=== PATIENT | female | born 1975 | race Caucasian/White ===

== ENCOUNTER → 2017-07-29 13:37 | Outpatient (REF) | payer BC, SELFPAY ==
[2017-07-29 18:56] LABS: Basophils % 0.6 % (0.1-2.0); Eosinophils # 0.2 K/mm3 (0.0-0.4); Eosinophils % 2.1 % (0.1-12.0); Hematocrit 39.2 % (37.0-47.0); Hemoglobin 12.5 g/dL (12.2-16.2); Lymphocytes # 1.9 K/mm3 (0.7-4.5); Lymphocytes % 28.1 K/mm3 (10-50); Mean Corpuscular HGB Conc 31.8 g/dL (31.8-35.4); Mean Corpuscular Hemoglobin 27.9 pg (27.0-31.2); Mean Corpuscular Volume 87.6 fl (81-99); Mean Platelet Volume 8.7 fl (7.4-10.4); Monocytes # 0.5 K/mm3 (0.1-1.0); Monocytes % 6.8 % (1.7-9.3); Neutrophils # 4.3 K/mm3 (1.8-7.8); Neutrophils % 62.4 % (37.0-80.0); Platelet Count 264 K/mm3 (142-424); Red Blood Count 4.47 M/mm3 (4.20-5.40); Red Cell Distribution Width 12.7 % (11.5-17.5); White Blood Count 6.9 K/mm3 (4.8-10.8)
[2017-07-29 19:06] LABS: Alanine Aminotransferase 14 U/L (12-78); Albumin Level 3.5 gm/dL (3.4-5.0); Alkaline Phosphatase 58 U/L (46-116); Anion Gap 13.3 mEq/L (5-15); Aspartate Amino Transferase 13 U/L (15-37); Bilirubin,Total 0.6 mg/dL (0.2-1.0); Blood Urea Nitrogen 20 mg/dL (7-18); Calcium 8.8 mg/dL (8.5-10.1); Carbon Dioxide 27 mmol/L (21.0-32.0); Chloride 106 mmol/L (98-107); Chol/HDL Ratio 5.4 (1-3.5); Cholesterol 226 mg/dL (140-200); Creatinine,Serum 0.71 mg/dL (0.55-1.02); Estimated Glomerular Filt Rate 90 ml/min (>60); Free T4 (Free Thyroxine) 0.96 ng/dl (0.76-1.46); GFR (African American) 109 ML/MIN (>60); Globulin 3.5 gm/dl (1.3-3.2); Glucose 84 mg/dL (74-106); HDL Cholesterol 42 mg/dL (29-89); LDL Cholesterol 149 mg/dL (0-130); Potassium 4.3 mmoL/L (3.5-5.1); Sodium 142 mmol/L (136-145); Thyroid Stimulating Hormone 1.77 uIU/ml (0.358-3.740); Triglycerides 176 mg/dL (30-200); VLDL Cholesterol 35 mg/dL (0-40)
[2017-07-29 19:12] LABS: Hemoglobin A1C 5.3 % (0.0-7.0)
[2017-07-31 16:59] LABS: LH 6.2 mIU/mL (.); Progesterone <0.1 ng/mL (.); Vitamin D 25 Hydroxy 25.1 ng/mL (30.0-100.0)
[2017-08-03 12:49] LABS: Estrogen 111 pg/mL (.)
== END ==
LOC: LAB 13:37
PROVIDERS: Visit Provider Nurse Practitioner Family
DX: R53.83 Other fatigue (principal); E11.9 Type 2 diabetes mellitus without complications
CPT/HCPCS: 80053; 80061; 82652; 82672; 83001; 83002; 83036; 84144; 84439; 84443; 85025

== ENCOUNTER → 2017-11-25 10:37 | Outpatient (CLI) | payer BC, SELFPAY ==
--- NOTE | 2017-11-25 10:41 | MM_ITS ---
MM Dig screening mamm BI w/CAD ORDERING PHYSICIAN : Jonathan Jane MD PATIENT AGE: 41 years GENDER: Female COMPARISON: February 2014 mammogram. Only INDICATION: ITS.REASON: Routine Mammogram Screening No hormones. No new complaints. Family history. paternal grandmother with breast cancer TECHNIQUE: Standard CC and MLO images were obtained. R2 CAD reviewed. FINDINGS: Minimal/Mild to moderate residual fibroglandular elements in both breast most evident towards central breast and upper outer quadrant. . When technique is considered I see no significant new findings. No dominant or suspicious mass. No suspicious calcifications. .. A stable tiny benign-appearing area of nodularity the deep lateral left breast again be followed.. I would recommend & encourage follow-up bilateral mammogram in one year. For ongoing evaluation -------IMPRESSION: ---- ... No significant new areas of concern. No suspicious findings. Bilateral follow-up in one year recommended and should be encouraged. BI-RADS Category: 2 Benign Finding(s) RECOMMENDED FOLLOW-UP: 1YR 1 YEAR FOLLOW-UP (A letter has been sent to the patient regarding results of the study.)
== END ==
PROVIDERS: Family Provider Family Medicine; PCP Nurse Practitioner Family; Visit Provider Nurse Practitioner Obstetrics & Gynecology
DX: Z12.31 Encounter for screening mammogram for malignant neoplasm of breast (principal)
CPT/HCPCS: 77067

== ENCOUNTER → 2019-04-11 16:04 | Outpatient (CLI) | payer BC, SELFPAY ==
--- NOTE | 2019-04-11 16:05 | MM_ITS ---
PROCEDURE: MM DIG SCREENING MAMM BI W/CAD Bilateral DIGITAL BREAST TOMOSYNTHESIS INCLUDED Patient Age:43Y CLINICAL INDICATION: screening xmg no hormones, no new complaints. Family history of paternal grandmother with breast cancer COMPARISON: : [facility] DIG MAMM-SCREEN [facility] from 03/13/2014 [facility] MM Dig screening mamm BI w/CAD from 11/25/2017 TECHNIQUE: Standard CC and MLO images were obtained. R2 CAD reviewed. Digital breast tomosynthesis included FINDINGS: Minimal residual fibroglandular elements scattered throughout the superior and upper outer quadrant breast bilaterally. . CAD highlights no areas of significant concern Right breast: On today's CC view there is a area of density lateral breast which appears slightly more angular. This is also question on CC maru image 28. More likely overlapping shadows but I would suggest spot and ultrasound upper-outer quadrant right breast to further evaluate Left breast. The the area of asymmetric density superior left breast is most focal on the CC images and tomosynthesis but favor merely overlapping shadow on MLO tomosynthesis however would suggest including ultrasound and spot views of this area when the patient returns as well IMPRESSION: Subtle areas density bilaterally a slightly more evident today than previous studies... Suggest/recommend additional spot views and ultrasound both breast at patient's convenience: Right breast: Questionable small area of architectural change upper-outer quadrant right breast. Warrants spot view and ultrasound. Left breast: Density superior left breast, suspect more likely overlapping shadows here on left but would benefit from additional imaging as well BI-RAD Category: 0 Need Additional Imaging Evaluation the FOLLOW-UP: IMM Immediate Follow-up Recommended Suggest spot views, along with bilateral breast ultrasound. (A letter has been sent to the patient regarding results of the study.) Dictated by: Wilian Tiwari MD 04/17/2019 10:07 Electronically signed by Wilian Tiwari MD in [place] 04/17/2019 10:07
== END ==
PROVIDERS: PCP Emergency Medicine; Visit Provider Nurse Practitioner Obstetrics & Gynecology
DX: Z12.31 Encounter for screening mammogram for malignant neoplasm of breast (principal)
CPT/HCPCS: 77063; 77067

== ENCOUNTER → 2019-05-22 13:27 | Outpatient (CLI) | payer BC, SELFPAY ==
--- NOTE | 2019-05-22 13:28 | MM_ITS ---
PROCEDURE: MM DIG MAMM BI DX W/CAD Digital Breast Tomosynthesis Included CLINICAL INDICATION: 6 month f/u Follow-up abnormal mammogram, asymmetric densities COMPARISON: [facility] DIG MAMM-SCREEN [facility] from 03/13/2014 [facility] MM Dig screening mamm BI w/CAD from 11/25/2017 MM DIG SCREENING MAMM BI W/CAD from 04/11/2019 US BREAST RT COMPLETE from 05/22/2019 US BREAST LT COMPLETE from 05/22/2019 TECHNIQUE: Standard CC and MLO images and 3D Tomosynthesis was obtained. R2 CAD reviewed. FINDINGS: There is average fibroglandular tissue. Right breast: No malignant appearing mass or malignant-appearing microcalcification evident. The area of asymmetry appears to compress out is fibroglandular tissue. Right breast ultrasound: No cystic or solid lesion evident. Left breast: No malignant appearing mass or malignant-appearing microcalcification. The area of asymmetry appears to compress out as fibroglandular tissue. Left breast ultrasound: Hypoechoic nodule at 7 mm noted at 12 o'clock at the represent a complex cyst. There is some questionable shadowing at this area however but could be related to artifact on the edge of the nodule. 2 mm cyst is present at 11 o'clock. Superior to the nipple there is a complex appearing hypoechoic nodule at 9 x 4 mm with some internal echoes and septations suggesting a complex cyst. IMPRESSION: Probably benign findings. Recommend bilateral 6 month mammographic follow-up and left sonographic follow-up BI-RAD Category: 3 Probably Benign Finding Short Term Follow-up FOLLOW-UP: 6M 6Month Follow-up (A letter has been sent to the patient regarding results of the study.) Dictated by: Royer Chacon MD 05/29/2019 10:01 Electronically signed by Royer Chacon MD in [place] 05/29/2019 10:01
== END ==
PROVIDERS: PCP Emergency Medicine; Visit Provider Nurse Practitioner Obstetrics & Gynecology
DX: R92.8 Other abnormal and inconclusive findings on diagnostic imaging of breast (principal)
CPT/HCPCS: 76641; 77062; 77066; G0279

== ENCOUNTER 2021-08-07 07:22 | Emergency (ER) | payer BC, SELFPAY ==
[2021-08-07 07:25] VITALS: BP 151/87; PULSE 83; RESP 18; TEMP 36.9; O2SAT 100; BMI 34.8
--- NOTE | 2021-08-07 07:43 | XR_ITS ---
FINAL REPORT CLINICAL HISTORY: CLOSED LEFT RING FINGER IN DOOR FINDINGS: LEFT RING FINGER: Three views were obtained. There is a nondisplaced tuft fracture of the 4th distal phalanx. The joint spaces are intact. There is no soft tissue abnormality. IMPRESSION: Nondisplaced tuft fracture 4th distal phalanx. Reviewed, Interpreted and Dictated by Jesus Randall III, MD Transcribed by Trina Mccoy Authenticated and [facility]
--- NOTE | 2021-08-07 07:47 | PC.NURSE ---
0745 RADIOLOGY NOTIFIED OF XR ORDER
--- NOTE | 2021-08-07 07:53 | PC.NURSE ---
ED MD AT BEDSIDE
--- NOTE | 2021-08-07 08:01 | HMH.EDGENADL ---
ED Disposition Clinical Impression: Crushing injury of left ring finger, initial encounter Disposition: Home, Self-Care Condition on Discharge: Good Additional Instructions: follow up PCP as needed Prescriptions: Mupirocin [Bactroban 2% Ointment 22gm tube] 1 applicatio TP TID #15 gm Transmission Status: Received by [id number] cephALEXin [Cephalexin 500mg Tab] 500 mg PO Q8 #30 tab Transmission Status: Received by [id number] Referrals: Love Bucio [Primary Care Provider] - - Critical Care Critical Care Time: No Attestation: On 08/07/21, the high probability of a clinically significant, sudden or life threatening deterioration of the following system(s) required my full and direct attention, intervention and personal management. The time I documented below is in addition to time spent performing reported procedures but includes the following listed in this critical care notation. Medical Decision Making - Medical Records Medical records reviewed: Yes: I reviewed the patient's medical records. - [place] Inquiry Pt receiving controlled substance: No Vital Signs: 08/07/21 07:25 08/07/21 08:46 Temperature 98.4 F 98.2 F Temperature Source Oral Oral Pulse Rate 73 Pulse Rate [Brachial] 83 Respiratory Rate 18 18 Blood Pressure 120/71 Blood Pressure [Right Arm] 151/87 H Blood Pressure Mean [Right Arm] 108 Blood Pressure Source Automatic Cuff Blood Pressure Source [Right Arm] Automatic Cuff Blood Pressure Position Sitting Blood Pressure Position [Right Arm] Sitting 02 Sat by Pulse Oximetry 100 Oxygen Delivery Method Room Air Room Air General Adult HPI - General Chief complaint: PAIN Stated complaint: AO 08/07 finger injury Time Seen by Provider: 08/07/21 08:36 Mode of Arrival: Ambulatory Limitations: No Limitations Description of Symptoms (Recalled from ER Triage Doc. by RN): pt reports smashing her left ring finger in the door at home about 0630 this am. small laceration to fingertip. 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 Radiation: non-radiation Severity: moderate Consistency: constant Relieving factors: immobilization Exacerbating factors: movement Associated symptoms: denies other symptoms - Related Data Home Medications Medication Instructions Recorded Confirmed nystatin 100,000 unit/gram topical TOPICAL 04/11/19 05/07/20 powder phentermine 37.5 mg tablet mg PO 04/11/19 05/07/20 Previous Rx's Medication Instructions Recorded omeprazole 20 mg capsule,delayed 20 mg PO DAILY #30 cap 07/29/17 release cholecalciferol (vitamin D3) 125 5,000 unit PO DAILY #30 cap 08/04/17 mcg (5,000 unit) capsule Mupirocin [Bactroban 2% Ointment 1 applicatio TP TID #15 gm 08/07/21 22gm tube] cephALEXin [Cephalexin 500mg Tab] 500 mg PO Q8 #30 tab 08/07/21 Allergies Allergy/AdvReac Type Severity Reaction Status Date / Time From Penicillin V Potassium Allergy Unknown Uncoded 05/07/20 10:19 From Propoxyphene-N W/ Apap Allergy Unknown Uncoded 05/07/20 10:19 Penicillin Allergy Unknown Uncoded 05/07/20 10:19 [facility] History - Hepatitis A Screen Attestation statement:: This patient has been screened for Hepatitis A risk factors. Medical History: Reports:: Hyperlipidemia, Hypertension Other Medical History: Reports: Other Comment: Obesity Other Surgeries: Yes: Bariatric Surgery, Cholecystectomy, , Other Amputation: No Fractures: Yes (Right Arm) Comment: Uterine Ablashion, Right arm - Social History Smoking Status: Never smoker Alcohol Intake: never Alcohol Intake Frequency:: other Substance Use Type: denies use Occupational Status: employed Housing: house Household Members: spouse Family Hx:: Heart Attack, Diabetes, Hypertension, Hyperlipidemia ROS Obtained: Yes All systems reviewed & no additional complaints Physical Exam - General General appearance: alert, in no apparent dis
[2021-08-07 08:46] VITALS: BP 120/71; PULSE 73; RESP 18; TEMP 36.8; O2SAT 98
== END 2021-08-07 08:46 | disposition home or self-care (01) ==
PROVIDERS: Emergency Provider Emergency Medicine; PCP Emergency Medicine
DX: S67.195A Crushing injury of left ring finger, initial encounter (principal); S61.215A Laceration without foreign body of left ring finger without damage to nail, initial encounter; W23.0XXA Caught, crushed, jammed, or pinched between moving objects, initial encounter
CPT/HCPCS: 73140; 99283